=== PATIENT | male | born 1990 ===

== ENCOUNTER 2018-10-23 11:54 | Inpatient (IN) | payer OTHER ==
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
[2018-10-23 14:33] LABS: BASO # 0.1 K/uL (0.0-0.2); BASO % 0.8 % (0.0-2.0); EOS % 0.6 % (0.0-4.0); HEMOGLOBIN 15.5 g/dL (12.0-18.0); LYMPH # 1.4 K/uL (1.0-4.3); LYMPH % 19.8 % (20.0-40.0); MEAN CELL VOLUME 88.3 fl (80.0-94.0); MEAN CORPUSCULAR HEMOGLOBIN 29.6 pg (27.0-31.0); MEAN CORPUSCULAR HGB CONC 33.5 g/dL (33.0-37.0); MEAN PLATELET VOLUME 9.3 fl (7.2-11.7); MONO # 0.4 K/uL (0.0-0.8); MONO % 6.3 % (0.0-10.0); NEUT % 72.5 % (50.0-75.0); NRBC % 0.2 % (0.0-0.0); RBC 5.25 Mil/uL (4.40-5.90); RED CELL DISTRIBUTION WIDTH 14.1 % (11.5-14.5); WHITE BLOOD COUNT 6.9 K/uL (4.8-10.8)
[2018-10-23 14:38] LABS: INR 1.1; PROTHROMBIN TIME 12.8 Seconds (9.8-13.1)
[2018-10-23 14:40] LABS: PARTIAL THROMBOPLASTIN TIME 38.7 Seconds (25.6-37.1)
[2018-10-23 14:48] LABS: ALB/GLOB RATIO 1.5 (1.0-2.1); ALBUMIN 5.2 g/dL (3.5-5.0); ALT/SGPT 42 U/L (21-72); AST/SGOT 30 U/L (17-59); BLOOD UREA NITROGEN 16 mg/dl (9-20); CALCIUM 9.9 mg/dL (8.4-10.2); GFR NON-AFRICAN AMERICAN > 60
--- NOTE | 2018-10-23 16:35 | RAD ---
Date of service: 10/23/2018 HISTORY: Back pain COMPARISON: No prior. TECHNIQUE: Chest PA and lateral views FINDINGS: LUNGS: No active pulmonary disease. PLEURA: No significant pleural effusion identified. No pneumothorax apparent. CARDIOVASCULAR: No aortic atherosclerotic calcification present. Normal cardiac size. No pulmonary vascular congestion. OSSEOUS STRUCTURES: No significant abnormalities. VISUALIZED UPPER ABDOMEN: Normal. OTHER FINDINGS: None. IMPRESSION: No active disease.
[2018-10-23] MEDS ORDERED: HYDROmorphone 1 mg/ml ISec IVP PRN (17:42)
[2018-10-24] MEDS: Dextrose 5%/Lactated Ringer's 1,000 ML IV SCH (05:50)
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
[2018-10-24] MEDS ORDERED: Absorbable Gelatin Sponge Size 12-7 ONE (07:21)
[2018-10-24] MEDS ORDERED: Bupivacaine 0.5% Inj(30mL) ONE (07:21)
[2018-10-24] MEDS ORDERED: Thrombin Topical 5,000 Int Units Spray Kit ONE (07:22)
[2018-10-24] MEDS ORDERED: ePHEDrine 50 mg/ml Inj ONE (07:23)
[2018-10-24] MEDS ORDERED: Propofol 10 mg/ml Inj (20 ML) ONE (07:23)
[2018-10-24] MEDS ORDERED: Succinylcholine Chloride 20 mg/ml Syr (5 ml) IV ONE (07:24)
[2018-10-24] MEDS ORDERED: Midazolam 2 MG/2 ML VIAL ONE (07:24)
[2018-10-24] MEDS ORDERED: Rocuronium 10 mg/ml (5 ml) ONE (07:24)
[2018-10-24] MEDS ORDERED: Lidocaine 4% (Laryng-O-Jet) Kit MM ONE (07:25)
[2018-10-24] MEDS ORDERED: Lactated Ringer's 1,000 ML IV ONE ×2 (07:45→09:30)
[2018-10-24] MEDS ORDERED: Dexamethasone 4 mg/1 ml ONE (08:10)
[2018-10-24] MEDS ORDERED: Neostigmine 1:1000 (1 mg/ml) Inj ONE (08:38)
[2018-10-24] MEDS ORDERED: Bupivacaine 0.5% 50 ML IJ ONE (08:58)
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
[2018-10-24] MEDS: HYDROmorphone 0.5 mg/0.5 ml ISec IVP PRN ×4 (09:45→10:28)
--- NOTE | 2018-10-24 10:36 | CARD ---
APPROVED REPORT Date of service: 10/23/2018 EKG Measurement Heart [id number] <Conclusion> Normal sinus rhythm Normal Electrocardiogram
--- NOTE | 2018-10-24 10:56 | PCM.SURG1 ---
Surgeon's Initial Post Op Note - Surgeon's Notes Surgeon: Vik Vallejo MD Ios Architect: Kadeem Laws PA-C Type of Anesthesia: General Endo Anesthesia Administered By: Viviana Hernandez MD Pre-Operative Diagnosis: Lumbar disc herniation Operative Findings: see complete operative report Post-Operative Diagnosis: Lumbar disc herniation at L3-L4 Operation Performed: Lumbar laminectomy and annuloplasty at L3-L4 Specimen/Specimens Removed: none Estimated Blood Loss: EBL {In ML}: 30 Blood Products Given: N/A Drains Used: No Drains Post-Op Condition: Good Date of Surgery/Procedure: 10/24/18 Time of Surgery/Procedure: 08:05
--- NOTE | 2018-10-24 12:27 | RAD ---
PROCEDURE: HISTORY: As above COMPARISON: None TECHNIQUE: Total fluoroscopic time utilized during the procedure: 12.3 seconds ; 8.6 6 mGy FINDINGS: Submitted images from the current procedure: 3 Please refer to the physician's notes performing the procedure. IMPRESSION: Less than 1 hour fluoroscopic time utilized during performance of the procedure
[2018-10-24] MEDS: Oxycodone/Acetaminophen 5/325 mg Tab PO PRN ×2 (17:30→21:59)
[2018-10-24] MEDS: Lactated Ringer's 1,000 ML IV SCH (18:25)
[2018-10-25] MEDS: Lactated Ringer's 1,000 ML IV SCH ×2 (01:42→11:55)
[2018-10-25 04:01] VITALS: O2SAT 98
--- NOTE | 2018-10-25 04:34 | OP ---
PROCEDURE DATE: 10/24/2018 PREOPERATIVE DIAGNOSIS: Lumbar herniated disk. POSTOPERATIVE DIAGNOSIS: Lumbar herniated disk. PROCEDURE: Lumbar laminectomy L3-L4 decompression and radiofrequency annuloplasty. Fluoroscopy has been used. Microscopy has been used. SURGEON: Vik Vallejo MD TROLLEY CAR OPERATOR: Kadeem Laws MD. Dr. Kadeem Laws is the physician assistant teaching professor, who helped me perform the surgery, who stayed throughout the case from the beginning to the end. DESCRIPTION OF PROCEDURE: The patient was brought to the operating room and anesthetized with general endotracheal anesthesia and placed in a prone position on a Mich table. Care was taken to protect all pressure points. Back of the lumbar area was thoroughly prepped and draped in the same sterile manner after marking the skin incision for lumbar laminectomy. After prepping and draping the area, the skin had been incised. Bleeding skin had been controlled with bipolar breakfast supervisor. After using a Bovie breakfast supervisor, paraspinal muscles had been detached from attachments of spinous process and lamina of L3-L4 on the left side. Ashley retractor has been applied to alter the facet joint of L3-L4. Confirmation of the level has been noted on fluoroscopy. By using a high-speed drill under magnification, the lamina of L3-L4 and medial part of L3-L4 have been drilled. Drilling is continued until the top and bottom of the ligamentum flavum seen. Drilling was also continued on the medial part of the facets until the turn of ligamentum was seen. Once this had been done, thinned out the lamina, medial part of the facets and ligamentum flavum had been removed. The midline has been decompressed and the ligamentum flavum has been removed from the other side also going under the spinous process decompressing the whole area. After that, nerve root and neural tube have been retracted medially and radiofrequency needle has been placed. After that confirmation was done with the fluoroscopy and a 90-degree centigrade two-minute radiofrequency lesion has been created. Needle has been removed. After that hemostasis best achieved. Fascia was closed, interspinous ligaments and spinous process with 1 Vicryl, subcutaneous with 3-0 Vicryl, skin with intradermal 3-0 Vicryl stitches. The patient tolerated the procedure. After the procedure, mobilized to the recovery room in stabilized condition. Vik Vallejo MD
[2018-10-25 08:09] VITALS: BP 116/53; PULSE 73; RESP 20; TEMP 97.4
[2018-10-25] MEDS: Oxycodone/Acetaminophen 5/325 mg Tab PO PRN (08:44)
--- NOTE | 2018-10-25 09:03 | CP.PCM.PN ---
Subjective - Date & Time of Evaluation Date of Evaluation: 10/25/18 Time of Evaluation: 07:30 - Subjective Subjective: Patient seen and examined at bedside comfortable. Pain well controlled. No acute events overnight. No other complaints. Objective - Vital Signs/Intake and Output Vital Signs (last 24 hours): Temp Pulse Resp BP Pulse Ox 97.4 F L 73 20 116/53 L 98 10/25/18 08:08 10/25/18 08:08 10/25/18 08:08 10/25/18 08:08 10/25/18 08:08 - Medications Medications: Current Medications Acetaminophen (Tylenol 325mg Tab) 650 mg PO Q4 PRN PRN Reason: Fever 101 degrees fahrenheit Cyclobenzaprine HCl (Flexeril) 10 mg PO Q8 PRN PRN Reason: Muscle spasm Last Admin: 10/24/18 22:00 Dose: 10 mg Hydromorphone HCl (Dilaudid) 1 mg IVP Q4 PRN PRN Reason: Pain, severe (8-10) Hydromorphone HCl (Dilaudid) 0.5 mg IVP Q10M PRN PRN Reason: Pain, moderate (4-7) Last Admin: 10/24/18 10:28 Dose: 0.5 mg Dextrose/Lactated Ringer's (Dextrose 5%/Lactated Ringer's) 1,000 mls @ 80 mls/hr IV .[id number] [facility] Stop: 10/25/18 17:51 Last Admin: 10/24/18 05:50 Dose: 80 mls/hr Lactated Ringer's (Lactated Ringer's) 1,000 mls @ 125 mls/hr IV .Q8H [facility] Last Admin: 10/25/18 01:42 Dose: Not Given Morphine Sulfate (Morphine) 2 mg IVP Q4 PRN PRN Reason: Pain, severe (8-10) Ondansetron HCl (Zofran Inj) 4 mg IVP ONCE PRN PRN Reason: Nausea/Vomiting Oxycodone/Acetaminophen (Percocet 5/325 Mg Tab) 2 tab PO Q4 PRN PRN Reason: Pain, moderate (4-7) Stop: 10/27/18 07:58 Last Admin: 10/25/18 08:44 Dose: 2 tab - Labs Labs: 10/23/18 14:14 10/23/18 14:14 PT 12.8 Seconds (9.8-13.1) 10/23/18 14:14 INR 1.1 10/23/18 14:14 APTT 38.7 Seconds (25.6-37.1) H 10/23/18 14:14 - Back Exam Additional comments: Mild barbara wound tenderness Dressings CDI sensation intact SP/DP/Tn motor intact EHL/FHL/TA/G neg clonus Assessment and Plan (1) Lumbar disc herniation Assessment & Plan: POD#1 s/p L3-4 laminectomy -pain controlled -PT/OT -neurosurgically cleared brewer/c to home with medrol dose christine, flexeril and percocet -f/u in office within 7-10 days -d/w Dr. Vallejo who agrees with above Status: Acute
[2018-10-25] MEDS: Dextrose 5%/Lactated Ringer's 1,000 ML IV SCH (11:56)
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
== END 2018-10-25 14:13 | disposition home or self-care (01) | DRG 520 ==
LOC: H.ER 11:54 → H.ERHOLD 14:11 → H.MEDSURG1 17:00
PROVIDERS: ADMIT Family Medicine; ATTEND Family Medicine
PROC: 0S5 Lower Joints, Destruction (ICD-10-PCS; principal; 2018-10-24 07:45)
DX: M51.26 Other intervertebral disc displacement, lumbar region (principal); V89.2XXS Person injured in unspecified motor-vehicle accident, traffic, sequela; G89.21 Chronic pain due to trauma; K29.70 Gastritis, unspecified, without bleeding; Z91.041 Radiographic dye allergy status